=== PATIENT | female | born 1975 | race Caucasian/White ===

== ENCOUNTER 2016-08-05 22:58 | Emergency (ER) | payer OTHER ==
--- NOTE | 2016-08-05 23:06 | PROVIDER DOCUMENTATION ---
[id number] Abuse/Overdose <Everett Wooten I - Last Filed: 08/06/16 17:06> <Mike Stewart - Last Filed: 08/07/16 00:20> - General Source: patient, EMS - History of Present Illness-Drug/Alcohol This episode of drinking or use began:: unsure Severity: reports: moderate Situational problems related to:: reports: recent Psychiatric Complaints: reports: anxiety, depressed Associated Symptoms: reports: denies symptoms <Carroll Cm - Last Filed: 08/07/16 00:35> - General Chief Complaint: Overdose Stated Complaint: OVERDOSE Time Seen by Provider: 08/05/16 23:01 Allergies/Adverse Reactions: Allergies Allergy/AdvReac Type Severity Reaction Status Date / Time metformin Allergy Severe ANAPHYLAXIS Verified 08/06/16 19:12 Penicillins Allergy Intermediate RASH Verified 08/01/16 20:42 Sulfa (Sulfonamide Allergy SWELLING Verified 08/01/16 20:42 Antibiotics) Home Medications: Home Medication List Medication Instructions Recorded Confirmed Last Taken Type Albuterol Sulfate Inhaler 2 puff INH Q6H PRN PRN #1 inhaler 06/23/12 10/06/15 18:00 Rx [Ventolin Hfa] Clonazepam [Klonopin] 0.125 mg PO PRN 09/14/13 10/06/15 09/13/13 08:00 History 0.125 Hydrocodone/APAP 5 mg/325 mg 1 - 2 tab PO Q6H PRN PRN #18 tablet 09/14/1310/06/15 07:00 Rx [[place]-5] Metoprolol Succinate E.r. [Toprol 50 mg PO DAILY 03/23/14 10/06/15 04/02/14 21: 00 History Xl] Alprazolam [Xanax] 0.5 mg PO PRN PRN 04/03/14 10/06/15 04/03/14 08:00 History Albuterol 2.5MG/Ipratrop 0.5MG 3 ml INH Q6H PRN PRN 05/19/14 10/06/15 05/19/14 16:00 History [Duoneb (A & A)] Famotidine [Pepcid] 20 mg PO DAILY #20 tablet 10/06/15 Unknown Rx Ibuprofen [Motrin] 800 mg PO Q8H PRN PRN #30 tablet 10/06/15 Unknown Rx - History of Present Illness-Drug/Alcohol Nature of Presenting Problem: Pt is a 40 yof who presents to ER via EMS after being called for a possible drug overdose. Pt has hx of drug abuse, and EMS reports that when they arrived on scene, pt was rolling around in her living room floor, bouncing up and down, and refused to go with EMS. Pt eventually started to walk outside, but became combative and refused to come to ER and EMS had to restrain pt. Pt reports she recently lost one of her family members, but denies any depression, SI, or HI. ( Carroll Cm) Review of Systems - Adult - REVIEW OF SYSTEMS - ADULT Constitutional: denies: chills, fever, fatique, night sweats Eyes: reports: no symptoms reported Ears, Nose, Mouth & Throat: reports: no symptoms reported Cardiovascular: denies: chest pain, edema, irregular heart rate, palpitations, poor circulation, syncope Respiratory: denies: chronic cough, cough, dyspnea on exertion, excessive sputum production, hemoptysis, shortness of breath, wheezing Gastrointestinal: reports: no symptoms reported Genitourinary: reports: no symptoms reported Musculoskeletal: reports: no symptoms reported Integumentary: reports: no symptoms reported Neurological: reports: no symptoms reported Psychiatric: reports: depression, emotional problems. denies: anxiety, anti- depressant use, alcohol/drug dependence, insomnia, panic attacks, suicidal thoughts Endocrine: reports: increased thirst. denies: change in skin pigment, cold intolerance, heat intolerance, increased hunger, polyuria Hematologic/Lymphatic: reports: no symptoms reported Allergic/Immunologic: reports: no symptoms reported All Other Systems: Reviewed and Negative <Carroll Cm - Last Filed: 08/07/16 00:35> Past History - Adult - PAST MEDICAL HISTORY-ADULT Review of Records: reports: Nursing Assessment Review, Medications Reviewed Cardiovascular: reports: blood clots, HTN Respiratory: reports: asthma, other (PE) Neurological: reports: other (hx of encephalopathy) Psychiatric: reports: anxiety, depression, other (rx drug abuse) Endocrine/Immune: reports: Diabetes Additional History: DVT LLE - PRIOR SURGERIES/PROCEDURES Surgical/Procedure History: reports: hysterectomy, other (Lithotripsy,ovarian cyst removed) - IMMUNIZATION STATUS Childhood Immunizations: See Nurse Assessment Flu Vaccine: See Nurse Assessment <Carroll Cm - Last Filed: 08/07/16 00:35> Physical Exam-General - PHYSICAL EXAM-ADULT Initial Vital Signs Reviewed: Yes - CONSTITUTIONAL General Appearance: appears well, alert, moderate distress, obese, slow to respond - HEAD, EARS, NOSE, MOUTH & THROAT HENMT: dental decay, other (dried secretions on lips/teeth). negative: pharyngeal erythema, tonsillar exudate, TM abnormal, TM obscurred by cerumen - SKIN Integumentary: normal color, normal turgor, warm/dry, other (dried secretions on lips/teeth) - NEUROLOGIC Neurologic: grossly normal, no motor/sensory deficits. negative: facial droop, focal weakness, motor weakness, sensory deficit - PSYCHIATRIC Psych/Mental Status: normal mood/affect, normal thought content, normal thought process, oriented x 3, anxious, depressed affect, paranoid <Carroll Cm - Last Filed: 08/07/16 00:35> Progress <Everett Wooten I - Last Filed: 08/06/16 17:06> <Mike Stewart - Last Filed: 08/07/16 00:20> - EKG 1 Time of EKG reading by physician:: 16:35 EKG Read and Signed by:: Everett Wooten EKG Interpretation (*Must complete 3 of following elements*): Abnormal Rate: 94 Rhythm: Sinus rhythm with short [place] - CHANGE OF SHIFT REPORT (ED Provider) Report Given and Care Transferred to:: Dr. Wooten Time of Transfer: 06:00 Items Pending: Physician Consult/Arrival <Carroll Cm - Last Filed: 08/07/16 00:35> - PLAN OF CARE/RESULTS Progress/Plan/Lab Results: Patient is hemodynamically stable. Awaiting Psyche placement. Sammy Wooten M.D., ACEP (Everett Wooten I) POC: Blood/urine lab work 2316: [facility] informed Dr. Stewart that, despite what pt reported to staff , pt's father does not have power of bankruptcy attorney over pt. Pt was offered placement at [facility], but declined and father refuses to pickle pumper pt. Vital Signs - 24 hr 08/06/16 08/06/16 08/06/16 06:37 11:59 14:25 Temperature 98.0 F 98.6 F Pulse Rate 82 97 H 91 H Respiratory 18 20 18 Rate Blood Pressure 153/85 155/85 163/87 O2 Sat by Pulse 95 98 100 Oximetry 08/06/16 08/06/16 15:09 19:01 Temperature 99.0 F Pulse Rate 112 H 91 H Respiratory 20 20 Rate Blood Pressure 161/100 163/112 O2 Sat by Pulse 98 98 Oximetry Orders Category Date Time Status Diabetic Diet Diet 08/06/16 11:32 Active Regular Diet Diet 08/06/16 06:42 Completed ACETAMINOPHEN [TDM] Stat Lab 08/05/16 23:29 Completed ALCOHOL BLOOD Stat Lab 08/05/16 23:29 Completed CBC WITH ELECTRONIC DIFF [HEME] Stat Lab 08/05/16 23:29 Completed COMPREHENSIVE METABOLIC PANEL [CHEM] Stat Lab 08/05/16 23:29 Completed FREE T4 Stat Lab 08/05/16 23:29 Completed SALICYLATES [TDM] Stat Lab 08/05/16 23:29 Completed TSH Stat Lab 08/05/16 23:29 Completed URINALYSIS W/POSS RFLX CULT [URINALYSIS] Stat Lab 08/06/16 00:20 Completed URINE DRUG SCREEN Stat Lab 08/06/16 00:20 Completed VITAMIN B12 Stat Lab 08/05/16 23:29 Completed Acetaminophen [Tylenol] Med 08/06/16 22:58 Discontinued 1,000 mg PO NOW ONE Acetaminophen [Tylenol] Med 08/06/16 09:29 Discontinued 650 mg PO NOW ONE Albuterol [Albuterol Neb] Med 08/07/16 21:53 Once 2.5 mg INH NOW ONE Linagliptin [Tradjenta] Med 08/06/16 19:16 Discontinued 5 mg PO NOW ONE Lorazepam [Ativan] Med 08/06/16 16:05 Discontinued 2 mg PO NOW ONE Metformin [Glucophage] Med 08/06/16 19:07 Discontinued 500 mg PO NOW ONE Metoprolol Succinate E.r. [Toprol Xl] Med 08/06/16 15:26 Discontinued 50 mg .ROUTE .STK-MED ONE Metoprolol Succinate E.r. [Toprol Xl] Med 08/06/16 15:29 Discontinued 50 mg PO NOW ONE Metoprolol [Lopressor] Med 08/06/16 19:05 Discontinued 50 mg PO NOW ONE Water, Sterile Inj [Sterile Water Inj] Med 08/05/16 23:43 Discontinued 1.2 ml INJ NOW ONE Water, Sterile Inj [Sterile Water Inj] Med 08/06/16 19:06 Discontinued 1.2 ml INJ NOW ONE Ziprasidone [Geodon] Med 08/05/16 23:43 Discontinued 20 mg IM NOW ONE Ziprasidone [Geodon] Med 08/06/16 19:06 Discontinued 20 mg IM NOW ONE Aerosol Treatments Routine Oth 08/06/16 21:53 Active Aerosol Treatments Stat Oth 08/06/16 21:53 Active EKG [EKG] Stat Ther 08/06/16 16:27 Ordered Laboratory Tests 08/06/16 08/06/16 08/06/16 00:00 00:00 00:00 WBC 9.55 RBC 4.20 Hgb 12.2 Hct 37.8 MCV 90.0 MCH 29.0 MCHC 32.3 L RDW Std Deviation 14.8 H Plt Count 224 MPV 10.7 H Immature Gran % (Auto) 0.2 Neut % (Auto) 78.1 H Lymph % (Auto) 16.4 L [place] % (Auto) 4.9 Eos % (Auto) 0.2 Baso % (Auto) 0.2 Immature Gran # (Auto) 0.02 Neut # (Auto) 7.45 H Lymph # (Auto) 1.57 Marion # (Auto) 0.47 Eos # (Auto) 0.02 Baso # (Auto) 0.02 Sodium 137 Potassium 4.2 Chloride 99 Carbon Dioxide 22 L Anion Gap 16 BUN 13 Creatinine 1.0 H Estimated GFR/1.73 m2 > 60 BUN/Creatinine Ratio 13 Glucose 293 H POC Glucose Calculated Osmolality 285 Calcium 8.9 Total Bilirubin 0.38 AST 25 ALT 18 Alkaline Phosphatase 121 H Total Protein 6.9 Albumin 3.7 Globulin 3.2 Albumin/Globulin Ratio 1.2 Vitamin B12 TSH Free T4 Urine Source Urine Color Urine Turbidity Urine pH Ur Specific [place] Urine Protein Ur Glucose (Stick) Ur Ketones (Stick) Urine Blood Urine Nitrite Urine Bilirubin Urobilinogen Dipstick Urine Leukocytes Urine WBC (Auto) Urine RBC (Auto) U Epithel Cells (Auto) Urine Bacteria (Auto) Salicylates < 3.00 L Urine Opiates Screen Ur Oxycodone Screen Ur Methadone, Qual Acetaminophen < 1.2 L Ur Barbiturates Screen Ur Phencyclidine Scrn Ur Amphetamines Screen U Benzodiazepines Scrn Urine Cocaine Screen U Cannabinoids Screen Plasma/Serum Ethyl Alc 08/06/16 08/06/16 08/06/16 00:00 00:20 00:20 WBC RBC Hgb Hct MCV MCH MCHC RDW Std Deviation Plt Count MPV Immature Gran % (Auto) Neut % (Auto) Lymph % (Auto) [place] % (Auto) Eos % (Auto) Baso % (Auto) Immature Gran # (Auto) Neut # (Auto) Lymph # (Auto) [place] # (Auto) Eos # (Auto) Baso # (Auto) Sodium Potassium Chloride Carbon Dioxide Anion Gap BUN Creatinine Estimated GFR/1.73 m2 BUN/Creatinine Ratio Glucose POC Glucose Calculated Osmolality Calcium Total Bilirubin AST ALT Alkaline Phosphatase Total Protein Albumin Globulin Albumin/Globulin Ratio Vitamin B12 357 TSH 1.15 Free T4 1.19 Urine Source CLEAN CATCH Urine Color YELLOW Urine Turbidity CLEAR Urine pH 6.5 Ur Specific [place] 1.026 Urine Protein 50 A Ur Glucose (Stick) >1000 A Ur Ketones (Stick) 20 A Urine Blood NEGATIVE Urine Nitrite NEGATIVE Urine Bilirubin NEGATIVE Urobilinogen Dipstick 2 A Urine Leukocytes NEGATIVE Urine WBC (Auto) <10 Urine RBC (Auto) <10 U Epithel Cells (Auto) <10 Urine Bacteria (Auto) 1+ Salicylates Urine Opiates Screen PRESUMPTIVE POSITIVE A Ur Oxycodone Screen NONE DETECTED Ur Methadone, Qual NONE DETECTED Acetaminophen Ur Barbiturates Screen NONE DETECTED Ur Phencyclidine Scrn NONE DETECTED Ur Amphetamines Screen NONE DETECTED U Benzodiazepines Scrn PRESUMPTIVE POSITIVE A Urine Cocaine Screen NONE DETECTED U Cannabinoids Screen PRESUMPTIVE POSITIVE A Plasma/Serum Ethyl Alc 08/06/16 13:34 WBC RBC Hgb Hct MCV MCH MCHC RDW Std Deviation Plt Count MPV Immature Gran % (Auto) Neut % (Auto) Lymph % (Auto) [place] % (Auto) Eos % (Auto) Baso % (Auto) Immature Gran # (Auto) Neut # (Auto) Lymph # (Auto) [place] # (Auto) Eos # (Auto) Baso # (Auto) Sodium Potassium Chloride Carbon Dioxide Anion Gap BUN Creatinine Estimated GFR/1.73 m2 BUN/Creatinine Ratio Glucose POC Glucose 245 H D Calculated Osmolality Calcium Total Bilirubin AST ALT Alkaline Phosphatase Total Protein Albumin Globulin Albumin/Globulin Ratio Vitamin B12 TSH Free T4 Urine Source Urine Color Urine Turbidity Urine pH Ur Specific [place] Urine Protein Ur Glucose (Stick) Ur Ketones (Stick) Urine Blood Urine Nitrite Urine Bilirubin Urobilinogen Dipstick Urine Leukocytes Urine WBC (Auto) Urine RBC (Auto) U Epithel Cells (Auto) Urine Bacteria (Auto) Salicylates Urine Opiates Screen Ur Oxycodone Screen Ur Methadone, Qual Acetaminophen Ur Barbiturates Screen Ur Phencyclidine Scrn Ur Amphetamines Screen U Benzodiazepines Scrn Urine Cocaine Screen U Cannabinoids Screen Plasma/Serum Ethyl Alc (Carroll Cm) Departure <Everett Wooten I - Last Filed: 08/06/16 17:06> - Departure Time of Disposition Order: 00:20 Certified Medical Emergency: Emergent <Mike Stewart - Last Filed: 08/07/16 00:20> - Departure Time of Disposition Order: 00:35 Certified Medical Emergency: Emergent <Carroll Cm - Last Filed: 08/07/16 00:35> - Departure DIAGNOSIS: Bizarre behavior Disposition: HOME 01 Condition: Good Additional Instructions: ED Follow Up Instructions: You have been treated by a care provider in the Emergency Department. These instructions are being provided to you so you can have an understanding of how to care for yourself upon discharge. Upon discharge from the Emergency Department, you are responsible for making arrangements for follow-up care by a physician of your choice. Take all prescribed medications as directed. Return to the Emergency Department immediately for any new or worsening symptoms. You may call the Physician Referral phone number at [phone] to obtain a list of Physicians who are taking new patients. Referrals: Diana Grayson CRNP [Primary Care Provider] - Instructions: Psychosis Attestation - Scribe Verification/Attestation Scribe:: Carroll Cm Acting as Scribe for:: Mike Stewart Scribonel documention review:: This chart was documented by a scribe and accurately reflects the service the provider performed and the decisions made by the provider. <Carroll Cm - Last Filed: 08/07/16 00:35> Physician Attestation
[2016-08-05] MEDS ORDERED: STERILE WATER INJ. INJ ONE (23:43)
[2016-08-05] MEDS ORDERED: GEODON IM ONE (23:43)
[2016-08-06 00:06] LABS: MANUAL DIFF NEEDED? NO
[2016-08-06 00:08] LABS: BASO% 0.2 % (0.0-0.8); EOS# 0.02 X1000 (0.0-0.7); EOS% 0.2 % (0.0-10.0); HEMATOCRIT 37.8 % (37.0-47.0); HEMOGLOBIN 12.2 g/dL (12.0-16.0); IMM GRAN# 0.02 X1000 (0.0-0.04); IMM GRAN% 0.2 % (0.0-0.5); LYMPH# 1.57 X1000 (1.2-3.4); LYMPH% 16.4 % (20.5-51.1); MCHC 32.3 g/dL (33-37); MONO# 0.47 X1000 (0.11-0.59); MONO% 4.9 % (1.7-9.3); MPV 10.7 FL (7.4-10.4); NEUT% 78.1 % (42.2-75.2); PLT 224 X1000 (130-400)
[2016-08-06 00:37] LABS: ACETAMINOPHEN < 1.2 ug/mL (10-30); AGAP 16; ALBUMIN 3.7 g/dL (3.5-5.0); ALKALINE PHOSPHATASE 121 U/L (32-104); BUN 13 mg/dL (8-22); CALCIUM 8.9 mg/dL (8.8-10.2); CHLORIDE 99 mmol/L (98-107); COSMO 285; GOT 25 U/L (10-30); GPT 18 U/L (10-36); POTASSIUM 4.2 mmol/L (3.5-5.1); SODIUM 137 mmol/L (136-145); TCO2 22 mmol/L (25-35); TOTAL BILIRUBIN 0.38 mg/dL (0.20-1.00); TOTAL PROTEIN 6.9 g/dL (6.3-8.3)
[2016-08-06 00:45] LABS: URINE CULTURE NEEDED? NO; URINE MICRO REVIEW NEEDED? NO; URINE SOURCE CLEAN CATCH
[2016-08-06 00:49] LABS: BILIRUBIN URINE NEGATIVE (NEGATIVE); BLOOD URINE NEGATIVE (NEGATIVE); COLOR YELLOW; GLUCOSE URINE >1000 mg/dL (NEGATIVE); LEUKOCYTES URINE NEGATIVE (NEGATIVE); NITRITE URINE NEGATIVE (NEGATIVE); PH URINE 6.5; PROTEIN URINE 50 mg/dL (NEGATIVE); SP GRAVITY URINE 1.026; TURBIDITY URINE CLEAR (CLEAR); UROBILINOGEN URINE 2 mg/dL (NORMAL)
[2016-08-06 00:50] LABS: UR EPITHELIAL CELLS <10 /HPF (<10); URINE BACTERIA 1+ /HPF; URINE RBC <10 /HPF (<10); URINE WBC <10 /HPF (<10)
[2016-08-06 01:02] LABS: FREE T4 1.19 ng/dL (0.93-1.70)
[2016-08-06 01:30] LABS: UR AMPHETAMINES QUAL NONE DETECTED (NONE DETECT); UR BARBITUATES QUAL NONE DETECTED (NONE DETECT); UR BENZODIAZEPIN QUAL PRESUMPTIVE POSITIVE (NONE DETECT); UR CANNABINOIDS QUAL PRESUMPTIVE POSITIVE (NONE DETECT); UR COCAINE QUAL NONE DETECTED (NONE DETECT); UR METHADONE QUAL NONE DETECTED (NONE DETECT); UR OPIATES QUAL PRESUMPTIVE POSITIVE (NONE DETECT); UR OXYCODONE QUAL NONE DETECTED (NONE DETECT); UR PCP QUAL NONE DETECTED (NONE DETECT)
[2016-08-06] MEDS ORDERED: TYLENOL PO ONE ×2 (09:29→22:58)
[2016-08-06] MEDS ORDERED: TOPROL XL ONE (15:26)
[2016-08-06] MEDS ORDERED: TOPROL XL PO ONE (15:29)
[2016-08-06] MEDS ORDERED: ATIVAN PO ONE (16:05)
[2016-08-06] MEDS ORDERED: LOPRESSOR PO ONE (19:05)
[2016-08-06] MEDS ORDERED: GEODON IM ONE (19:06)
[2016-08-06] MEDS ORDERED: STERILE WATER INJ. INJ ONE (19:06)
[2016-08-06] MEDS ORDERED: GLUCOPHAGE PO ONE (19:07)
[2016-08-06] MEDS ORDERED: TRADJENTA PO ONE (19:16)
[2016-08-07 00:32] VITALS: BP 181/105
[2016-08-07] MEDS ORDERED: ALBUTEROL NEB INH ONE (21:53)
--- NOTE | 2016-08-08 07:51 | EKG Report ---
Test Performed on : 08/06/2016 4:35:04 PM Test Reason : psych Blood Pressure : / mmHG Vent. Rate : 094 BPM Atrial Rate : 094 BPM P-R Int : 110 ms QRS Dur : 080 ms QT Int : 350 ms P-R-T Axes : 014 033 029 degrees QTc Int : 437 ms Sinus rhythm. with short [place] Otherwise normal ECG When compared with ECG of 27-DEC-2014 06:41, T wave inversion no longer evident in Anterior leads Unconfirmed Result
== END 2016-08-07 00:49 | disposition home or self-care (01) ==
LOC: ED 22:58 → SUPCPDRO 22:58 → ED 08-07 00:49
DX: R46.2 Strange and inexplicable behavior (principal); F32.9 Major depressive disorder, single episode, unspecified; R63.1 Polydipsia; Z86.718 Personal history of other venous thrombosis and embolism; Z86.711 Personal history of pulmonary embolism; I10 Essential (primary) hypertension; E11.9 Type 2 diabetes mellitus without complications; R94.31 Abnormal electrocardiogram [ECG] [EKG]; Z79.899 Other long term (current) drug therapy; G93.40 Encephalopathy, unspecified; F41.9 Anxiety disorder, unspecified; E66.9 Obesity, unspecified
CPT/HCPCS: 80053; 81001; 82607; 82948; 84439; 84443; 85025; 93005; G0480; J3486; 80320; 80324; 80329; 80345; 80346; 80349; 80353; 80358; 80361; 80365; 83992